=== PATIENT | male | born 1980 | race Caucasian/White ===

== ENCOUNTER 2016-12-25 12:40 | Emergency (ER) | payer OTHER ==
[2016-12-25 13:09] VITALS: BP 157/99; PULSE 104; TEMP 98.6; BMI 31.9
[2016-12-25] MEDS ORDERED: DEXAMETHASONE LIQUID 0.5 MG/5 ML 240 ML BULK BOTTLE PO ONE (13:48)
[2016-12-25] MEDS ORDERED: IBUPROFEN 600 MG TABLET (FP) PO ONE ×2 (13:48→13:51)
[2016-12-25] MEDS ORDERED: DEXAMETHASONE SOD PHOSPHATE 10 MG/1 ML VIAL ONE (13:51)
--- NOTE | 2016-12-25 13:54 | PDOC ---
History of Present Illness - General Chief Complaint: Sore Throat Stated Complaint: SORE THROAT Time Seen by Provider: 12/25/16 13:37 History Source: Patient Exam Limitations: No Limitations - History of Present Illness Initial Comments: 12/25/16 13:52 Chief complaint: Sore throat difficulty swallowing today History of present illness: Patient is a 36-year-old male with no significant medical history here today complaining of sore throat with difficulty swallowing due to soreness of throat today at work. Patient denies any shortness of breath but found it difficult to swallow causing him to be anxious. Patient does not have any difficulty breathing or swallowing in exam room. Patient and his report that he has sore throat intermittently. Patient has been afebrile. Patient does not have any nasal congestion, headache , nausea vomiting, or cough or diarrhea. Patient has had no known sick contacts or recent travel. He has had no new medications does not have any facial swelling. Timing/Duration: getting worse (today ) Severity: moderate Associated Symptoms: reports: other (sore throat ) Past History - Past Medical History Allergies/Adverse Reactions: Allergies Allergy/AdvReac Type Severity Reaction Status Date / Time No Known Allergies Allergy Verified 12/25/16 13:07 Home Medications: Ambulatory Orders Amoxicillin - [Amoxicillin 500mg Capsule -] 1,000 mg PO DAILY #20 capsule Other medical history: denies. - Psycho/Social/Smoking Cessation Hx Suicidal Ideation: No Smoking History: Never smoked Review of Systems - Review of Systems Able to Perform ROS?: Yes Constitutional: No: Symptoms Reported HEENTM: Yes: Throat Pain Respiratory: No: Symptoms reported Cardiac (ROS): No: Symptoms Reported ABD/GI: No: Symptoms Reported : No: Symptoms Reported Musculoskeletal: No: Symptoms Reported Integumentary: No: Symptoms Reported Neurological: No: Symptoms reported *Physical Exam - Vital Signs Last Vital Signs Temp Pulse Resp BP Pulse Ox 98.6 F 104 H 19 157/99 99 12/25/16 13:07 12/25/16 13:07 12/25/16 13:07 12/25/16 13:07 12/25/16 13:07 - Physical Exam General Appearance: Yes: Appropriately Dressed HEENT: positive: TMs Normal, Pharyngeal Erythema, Tonsillar Erythema (with no tonsillar deviation ). negative: Tonsillar Exudate, Nasal Congestion, Rhinorrhea Neck: negative: Lymphadenopathy (R), Lymphadenopathy (L) Respiratory/Chest: positive: Lungs Clear, Normal Breath Sounds. negative: Chest Tender, Respiratory Distress Cardiovascular: positive: Regular Rhythm, Regular Rate, S1, S2 Gastrointestinal/Abdominal: positive: Normal Bowel Sounds, Soft. negative: Tender, Organomegaly, Distended, Guarding, Rebound, Tenderness, Hepatomegaly, Spleenomegaly Integumentary: positive: Normal Color Neurologic: positive: Alert, Normal Response, Responsive Medical Decision Making - Medical Decision Making 12/25/16 13:54 Patient is a 36-year-old male with no significant medical history here today complaining of sore throat with difficulty swallowing due to soreness of throat today at work. Patient denies any shortness of breath but found it difficult to swallow causing him to be anxious. Patient does not have any difficulty breathing or swallowing in exam room. Patient and his report that he has sore throat intermittently. Patient has been afebrile. Patient does not have any nasal congestion, headache, nausea vomiting, or cough or diarrhea. Patient has had no known sick contacts or recent travel. He has had no new medications does not have any facial swelling. Pharyngitis, tonsillitis rule out strep throat Plan: Throat C&S rapid negative decadron 10 mg po now ' ibuprofen 600 mg po now based on clinical symptoms will treat with amoxicillin 1000 mg daily for 10 days Follow up with primary care provider Follow up with ENT 12/25/16 14:37 12/25/16 15:13 *DC/Admit/Observation/Transfer Diagnosis at time of Disposition: Acute tonsillitis Qualifiers: Pharyngitis/tonsillitis etiology: unspecified etiology Qualified Code(s): J03.90 - Acute tonsillitis, unspecified - Discharge Dispostion Disposition: HOME Condition at time of disposition: Stable - Referrals Referrals: Hero Carvalho MD [Primary Care Provider] - Jeison Lennon MD [Staff Physician] - - Patient Instructions Additional Instructions: Follow up with primary care provider as soon as possible Follow Up with ear nose and throat DrLeanne within the next few days if sympoms persist Return to emergency room if symptoms worsen or new symptoms develop do not eat and lie down for at least 2 hours take Ibuprofen as needed as directed by corporate sales representative Patient voiced understanding of discharge instructions and all questions were answered
== END 2016-12-25 15:30 | disposition home or self-care (01) ==
LOC: JERFT 12:40
DX: J03.90 Acute tonsillitis, unspecified (principal)
CPT/HCPCS: 87070; 87430; 99281-25